=== PATIENT | female | born 1955 | race Caucasian/White ===

== ENCOUNTER → 2018-08-25 12:48 | Outpatient (CLI) | payer SELFPAY ==
--- NOTE | 2018-08-25 13:01 | BI_ITS ---
MAMMOGRAPHY - BILATERAL SCREENING REASON FOR EXAM: Female, 63 years old. Routine annual screening examination. PERTINENT HISTORY: Non-contributory. Remote right stereotactic breast biopsies and right excisional breast biopsy. TECHNIQUE: Digital bilateral breast margot (3D mammographic acquisition) in the CC and MLO projections. 2-D mediolateral oblique (MLO) and craniocaudad (CC) views of both breasts were obtained. CAD: Full Field Digital Mammography with Computer Added Detection was performed. COMPARISON: Comparison is made with prior outside examination dated June 24, 2017. FINDINGS: Breast Composition: The breasts are heterogeneously dense, which may obscure small masses. There are no dominant masses or suspicious calcifications. No other significant abnormalities are identified. There has been no significant change since the prior study. BI/SCREEN MAMM (CAD) W/MARGOT BILAT IMPRESSION: Stable bilateral screening mammogram. Yearly follow-up mammogram recommended. (A) ASSESSMENT CATEGORY: BIRADS Category 2: Benign. A letter regarding these results will be sent to the patient by the facility within 30 days. Approximately 10% of breast cancers are not detected by mammography. A normal mammogram should not delay biopsy of a clinically suspicious abnormality. [id number] Electronically Signed: Danilo Fair, at 15:14 EDT , Service support ,
== END ==
PROVIDERS: Family Provider Family Medicine; PCP Family Medicine; Referring Provider Family Medicine; Visit Provider Family Medicine
DX: Z12.31 Encounter for screening mammogram for malignant neoplasm of breast (principal)
CPT/HCPCS: 77063; 77067

== ENCOUNTER → 2019-09-25 10:43 | Outpatient (CLI) | payer MEDICARE, SELFPAY ==
--- NOTE | 2019-09-25 10:44 | BI_ITS ---
MAMMOGRAPHY - BILATERAL SCREENING REASON FOR EXAM: Female, 64 years old. Routine annual screening examination. PERTINENT HISTORY: Non-contributory. Remote right stereotactic breast biopsies and excisional breast biopsy. TECHNIQUE: Digital bilateral breast margot (3D mammographic acquisition) in the CC and MLO projections. 2-D mediolateral oblique (MLO) and craniocaudad (CC) views of both breasts were obtained. CAD: Full Field Digital Mammography with Computer Added Detection was performed. COMPARISON: Comparison is made with prior study dated August 25, 2018. FINDINGS: Breast Composition: The breasts are heterogeneously dense, which may obscure small masses. There are no dominant masses or suspicious calcifications. A tissue clip marker is seen in the upper lateral aspect of the right breast. No other significant abnormalities are identified. There has been no significant change since the prior study. BI/SCREEN MAMM (CAD) W/MARGOT BILAT IMPRESSION: Stable bilateral screening mammogram. Yearly follow-up mammogram recommended. (A) ASSESSMENT CATEGORY: BIRADS Category 2: Benign. A letter regarding these results will be sent to the patient by the facility within 30 days. Approximately 10% of breast cancers are not detected by mammography. A normal mammogram should not delay biopsy of a clinically suspicious abnormality. [id number] Electronically Signed: Danilo Fair, at 12:14 EDT , Service support ,
== END ==
PROVIDERS: PCP Family Medicine; Referring Provider Family Medicine; Visit Provider Family Medicine
DX: Z12.31 Encounter for screening mammogram for malignant neoplasm of breast (principal)
CPT/HCPCS: 77063; 77067

== ENCOUNTER → 2020-10-01 08:28 | Outpatient (CLI) | payer MEDICARE, SELFPAY ==
--- NOTE | 2020-10-01 08:31 | BI_ITS ---
MAMMOGRAPHY - BILATERAL SCREENING REASON FOR EXAM: Female, 65 years old. Routine annual screening examination. PERTINENT HISTORY: Non-contributory. Remote right stereotactic breast biopsy and right excisional breast biopsy. TECHNIQUE: Digital bilateral breast margot (3D mammographic acquisition) in the CC and MLO projections. 2-D mediolateral oblique (MLO) and craniocaudad (CC) views of both breasts were obtained. CAD: Full Field Digital Mammography with Computer Added Detection was performed. COMPARISON: Comparison is made with prior study of 09/25/2019 and 08/25/2018. FINDINGS: Breast Composition: The breasts are heterogeneously dense, which may obscure small masses. There are no dominant masses or suspicious calcifications. There are 2 tissue clip markers once again seen in the retroareolar region of the right breast No other significant abnormalities are identified. There has been no significant change since the prior study. BI/SCRN MAMM (CAD)W/MARGOT BILAT IMPRESSION: Stable bilateral screening mammogram. Yearly follow-up mammogram recommended. (A) ASSESSMENT CATEGORY: BIRADS Category 2: Benign. A letter regarding these results will be sent to the patient by the facility within 30 days. Approximately 10% of breast cancers are not detected by mammography. A normal mammogram should not delay biopsy of a clinically suspicious abnormality. [id number] Electronically Signed: Danilo Fair MD at 9:12 EDT , Service support ,
== END ==
PROVIDERS: PCP Family Medicine; Referring Provider Family Medicine; Visit Provider Family Medicine
DX: Z12.31 Encounter for screening mammogram for malignant neoplasm of breast (principal)
CPT/HCPCS: 77063; 77067

== ENCOUNTER → 2021-11-16 | Outpatient (CLI) | payer MEDICARE, SELFPAY ==
--- NOTE | 2021-11-16 10:30 | BI_ITS ---
MAMMOGRAPHY - BILATERAL SCREENING REASON FOR EXAM: Female, 66 years old. Routine annual screening examination. PERTINENT HISTORY: Non-contributory. History of prior right excisional and stereotactic breast biopsies. TECHNIQUE: Digital bilateral breast margot (3D mammographic acquisition) in the CC and MLO projections. 2-D mediolateral oblique (MLO) and craniocaudad (CC) views of both breasts were obtained. CAD: Full Field Digital Mammography with Computer Added Detection was performed. COMPARISON: Comparison is made with prior study dated 10/01/2020 and 09/25/2019. FINDINGS: Breast Composition: The breasts are heterogeneously dense, which may obscure small masses. There are no dominant masses or suspicious calcifications. Once again, 2 soft tissue clip markers are seen in the retroareolar region of the right breast. No other significant abnormalities are identified. There has been no significant change since the prior study. BI/SCRN MAMM (CAD)W/MARGOT BILAT IMPRESSION: Stable bilateral screening mammogram. Yearly follow-up mammogram recommended. (A) ASSESSMENT CATEGORY: BIRADS Category 0: Incomplete. Need additional imaging evaluation. A letter regarding these results will be sent to the patient by the facility within 30 days. Approximately 10% of breast cancers are not detected by mammography. A normal mammogram should not delay biopsy of a clinically suspicious abnormality. [id number] Electronically Signed: Danilo Fair MD at 11:15 EDT ,
== END | disposition home or self-care (01) ==
LOC: OPBI 10:29
PROVIDERS: PCP Family Medicine; Visit Provider Family Medicine
DX: Z12.31 Encounter for screening mammogram for malignant neoplasm of breast (principal); N64.89 Other specified disorders of breast
CPT/HCPCS: 77063; 77067

== ENCOUNTER → 2022-12-24 | Outpatient (CLI) | payer MEDICARE, SELFPAY ==
--- NOTE | 2022-12-24 10:47 | BI_ITS ---
MAMMOGRAPHY - BILATERAL SCREENING REASON FOR EXAM: Female, 67 years old. Routine annual screening examination. PERTINENT HISTORY: Non-contributory. Prior right stereotactic breast biopsies and excisional breast biopsy. TECHNIQUE: Digital bilateral breast margot (3D mammographic acquisition) in the CC and MLO projections. 2-D mediolateral oblique (MLO) and craniocaudad (CC) views of both breasts were obtained. CAD: Full Field Digital Mammography with Computer Added Detection was performed. COMPARISON: Comparison is made with prior study dated November 16, 2021 and October 01, 2020. FINDINGS: Breast Composition: The breasts are heterogeneously dense, which may obscure small masses. There are no dominant masses or suspicious calcifications. Once again, there are 2 tissue clip marker is seen in the retroareolar region of the right breast. No other significant abnormalities are identified. There has been no significant change since the prior study. BI/SCRN MAMM (CAD)W/MARGOT BILAT IMPRESSION: Stable bilateral screening mammogram. Yearly follow-up mammogram recommended. (A) ASSESSMENT CATEGORY: BIRADS Category 2: Benign. A letter regarding these results will be sent to the patient by the facility within 30 days. Approximately 10% of breast cancers are not detected by mammography. A normal mammogram should not delay biopsy of a clinically suspicious abnormality. [id number] Electronically Signed: Danilo Fair MD at 13:39 EDT ,
== END | disposition home or self-care (01) ==
LOC: OPBI 10:45
PROVIDERS: PCP Family Medicine; Referring Provider Family Medicine; Visit Provider Family Medicine
DX: Z12.31 Encounter for screening mammogram for malignant neoplasm of breast (principal)
CPT/HCPCS: 77063; 77067

== ENCOUNTER 2023-05-04 07:34 | Day surgery (SDC) | payer MEDICARE, SELFPAY ==
--- OUTSIDE RECORDS SUMMARY | 2023-05-04 07:37 | XMS RPT_ITS | CCD ---
Author Name Unknown Address [address] [place] [address] Organization [facility] Care Team Providers Care Service Desk Associate Name Role Phone Melani Gramajo Primary Care Provider MINOT, MELANI Primary Care Unavailable MINOT, MELANI Consulting Unavailable MINOT, MELANI Admitting Unavailable MINOT, MELANI Attending Unavailable PROVIDER, UNKNOWN Consulting Unavailable MINOT, MELANI Consulting Unavailable MINOT, MELANI Attending Unavailable MINOT, MELANI Admitting Unavailable MINOT, MELANI Primary Care Unavailable PROVIDER, UNKNOWN Consulting Unavailable MINOT, MELANI Attending Unavailable MINOT, MELANI Primary Care Unavailable MINOT, MELANI Consulting Unavailable MINOT, MELANI Admitting Unavailable PROVIDER, UNKNOWN Consulting Unavailable MINOT, MELANI Primary Care Unavailable MINOT, MELANI Consulting Unavailable MINOT, MELANI Admitting Unavailable MINOT, MELANI Attending Unavailable PROVIDER, UNKNOWN Consulting Unavailable MINOT, MELANI Primary Care Unavailable MINOT, MELANI Consulting Unavailable MINOT, MELANI Admitting Unavailable MINOT, MELANI Attending Unavailable PROVIDER, UNKNOWN Consulting Unavailable MINOT, MELANI Primary Care Unavailable MINOT, MELANI Consulting Unavailable MINOT, MELANI Admitting Unavailable MINOT, MELANI Attending Unavailable PROVIDER, UNKNOWN Consulting Unavailable MINOT, MELANI Referring Unavailable MINOT, MELANI Consulting Unavailable YOANDY FITZGERALD Primary Care Unavailable LEMCHRISSY, YOANDY Isidro Attending Unavailable LEMCHRISSY, YOANDY Isidro Admitting Unavailable PROVIDER, UNKNOWN Consulting Unavailable MINOT, MELANI Primary Care Unavailable MINOT, MELANI Consulting Unavailable MINOT, MELANI Attending Unavailable MINOT, MELANI Admitting Unavailable PROVIDER, UNKNOWN Consulting Unavailable MINOT, MELANI Primary Care Unavailable MINOT, MELANI Consulting Unavailable MINOT, MELANI Admitting Unavailable MINOT, MELANI Attending Unavailable PROVIDER, UNKNOWN Consulting Unavailable Medications Completed/Discontinued Medications Medication Drug Class(es) Dates Sig (Normalized) Sig (Original) Calcium Carbonate (1 source) CALCIUM CARBONAT E (CALCIUM 600 ORAL) Take by mouth. 0 Active Problems Active Problems Problem Classification Problem Date Documented Da te Episodic/Chronic Cardiac dysrhythmias (1 source) Tachycardia, unspecified; Translations: [Tachycardia, unspecified] Onset: 03-31-2023 Episodic Other lower respiratory disease (1 source) Shortness of breath; Translations: [Shortness of breath] Onset: 03-31-2023 Episodic Other screening for suspected conditions (not mental disorders or infectious disease) (2 sources) Other specified abnormal findings of blood chemistry; Translations: [Other specified abnormal findings of blood chemistry] Onset: 02-18-2023 Episodic Residual codes; unclassified (1 source) Kidney donor; Translations: [Kidney donors] Episodic Past or Other Problems Problem Classification Problem Date Documented Da te Episodic/Chronic E Codes: Natural/environment (1 source) Bitten or stung by nonvenomous insect and other nonvenomous arthropods, initial encounter; Translations: [Bitten or stung by nonvenomous insect and other nonvenomous arthropods, initial encounter] Onset: 07-13-2022 Episodic Heart valve disorders (1 source) Cardiac murmur, unspecified; Translations: [Cardiac murmur, unspecified] Onset: 07-23-2022 Episodic Nonspecific chest pain (3 sources) Chest pain, unspecified; Translations: [Chest pain, unspecified] Onset: 07-23-2022 Episodic Other aftercare (1 source) Other disc pad grinder (current) drug therapy; Translations: [Other disc pad grinder (current) drug therapy] Onset: 08-17-2022 Episodic Other infections; including parasitic (1 source) Lyme disease, unspecified; Translations: [Lyme disease, unspecified] Onset: 10-01-2022 Episodic Results Test Name Value Interpretation Reference Range Facil ity Encounters Encounter Date Encounter Type Care Provider Facility Start: 03-31-2023 End: 03-31-2023 ambulatory [facility] Start: 02-18-2023 End: 02-18-2023 ambulatory [facility] Start: 02-07-2023 End: 02-07-2023 ambulatory [facility] Start: 10-01-2022 End: 07-14-2023 ambulatory [facility] Start: 08-17-2022 End: 08-17-2022 ambulatory [facility] Start: 07-23-2022 End: 07-23-2022 ambulatory [facility] Start: 07-13-2022 End: 07-13-2022 ambulatory [facility] Start: 07-12-2022 End: 07-12-2022 Emergency department patient visit [facility] Start: 06-15-2021 Telephone encounter Jessica Flores RN [facility] Procedures Date Procedure Procedure Detail Performing Clinician Start: 06-24-2017 Mammography Jessica Peng cic, RN Start: 01-30-2013 Colonoscopy Jessica Peng cic, RN Plan of Treatment Date Care Activity Detail Author Start: 01-30-2023 Colonoscopy COLONOSCOPY [facility] Start: 01-30-2023 COLORECTAL CANCER SCREENING COLORECTAL CANCER SCREENING [facility] Start: 03-21-2021 ADVANCE DIRECTIVE DISCUSSION ADVANCE DIRECTIVE DISCUSSION [facility] Start: 11-19-2020 Influenza vaccination INFLUENZA (#1) [facility] Start: 2019 BONE DENSITY BONE DENSITY [facility] Start: 2019 PNEUMOVAX AGE 65 AND OVER WITH 5YR LOOKBACK (#1) PNEUMOVAX AGE 65 AND OVER WITH 5YR LOOKBACK (#1) [facility] Start: 06-24-2018 Mammography MAMMOGRAM [facility] Start: 01-14-2004 SHINGRIX VACCINE (1 of 2) SHINGRIX V ACCINE (1 of 2) [facility] Start: 1999 COLOGUARD (FIT-DNA) COLOGUARD (FIT-D NA) [facility] Start: [address] COLONOGRAPHY [facility] Start: 1999 DIABETES SCREEN DIABETES SCREEN [facility] Start: 1999 FECAL OCCULT BLOOD FECAL OCCULT BLOO D [facility] Start: 1999 LIPID SCREEN LIPID SCREEN [facility] Start: 1999 SIGMOIDOSCOPY SIGMOIDOSCOPY [facility] Start: 1973 Urine microalbumin profile DTAP,TDAP ,TD (1 - Tdap) [facility] Start: 01-14-1972 HEPATITIS C SCREENING HEPATITIS C WY RINA [facility] Start: 1966 Adult depression [facility] assessment DEPRESSION SCREENING [facility] Start: 1959 COVID-19 VACCINE (1) COVID-19 VACCIN E (1) [facility] Payers Date Payer Category Payer Private Health Insurance [employer] [id number] 2021-Present [phone] [address] [place] [address] Indemnity [id number] 1955 Unknown [id number] 51 1955 Unknown [id number] 51 1955 Unknown [id number] 51 1955 Unknown [id number] 51 1955 Unknown [id number] 51 1955 Unknown [id number] 51 1955 Unknown [id number] 51 1955 Unknown [id number] 51 1955 Unknown [id number] 51 Medicare [id number] Social History Date Type Detail Facility Start: 12-08-2012 Tobacco smoking status NHIS Never sm oked tobacco [facility] Start: 01-30-2013 Alcohol intake Not Asked [facility] Start: 1955 Sex Assigned At Not on file [facility] Evaluation note Note Date & Type Note Facility documented in this encounter [facility] Summary Purpose Family History No Family History Records FoundNo Family History Records FoundNo Family History Records Found Advance Directives No Advanced Directives Records FoundNo Advanced Directives Records FoundNo Advanced Directives Records Found Additional Source Comments INFORMATION SOURCE (unrecogn ized section and content) DATE CREATED AUTHOR AUTHOR'S ORGANIZ ATION 04/04/2023 [facility] DATE CREATED AUTHOR AUTHOR'S ORGANIZ ATION 04/04/2023 [facility] Source Comments (unrecognize d section and content) In the event this informatio n is protected by the Federal Confidentiality of Alcohol and Drug Abuse Patient Records regulations: The Federal rules restrict any use of the information to criminally investigate or prosecute any alcohol or drug abuse patient.[facility] Reason for Visit (unrecogniz ed section and content) Care Teams (unrecognized sec tion and content) FOR RECORDS PERTAINING TO PATIENTS WHO ARE OR HAVE BEEN ENROLLED IN A CHEMICAL DEPENDENCY/SUBSTANCEABUSE PROGRAM, SOME INFORMATION MAY BE OMITTED. This clinical summary was aggregated from multiple sources. Caution should be exercised in using it in the provision of clinical care. This summary normalizes information from multiple sources, and as a consequence, information in this document may materially change the coding, format and clinical context of patient data. In addition, data may be omitted in some cases. CLINICAL DECISIONS SHOULD BE BASED ON THE PRIMARY CLINICAL RECORDS. [facility] [email or web address] [facility]. provides no warranty or guarantee of the accuracy or completeness of information in this document.
[2023-05-04 07:57] VITALS: BP 101/70; PULSE 86; RESP 16; TEMP 36.5; O2SAT 100; BMI 24.5
[2023-05-04] MEDS: Lactated Ringers 1,000 ML 15 ML IV (08:00)
--- NOTE | 2023-05-04 08:10 | HP.PCM_ITS ---
[facility] - General General Date of Service: 05/04/23 [facility] Narrative JESUS CRAIG, is a 68 F who presents for screening colonoscopy. Patient had previous colonoscopy [address] Villasenor negative per patient. Patient denies any chronic abdominal pain/nausea/vomiting/reflux. Patient has bowel movements daily denies any blood. Patient denies any family history of colon cancer. [facility] Medical History Ascending aorta enlargement Cardiology follow-up encounter Depression Depression, controlled Heart murmur History of echocardiogram History of irregular heartbeat History of steroid therapy History of stress test Lyme disease Mitral valve insufficiency Osteopenia Post-menopausal Tachycardia Wears glasses Home Medications calcium carbonate 600 mg-vitamin D3 5 mcg (200 unit) tablet 1 tab PO DAILY 04/18/23 [History Last Taken Unknown] cranberry 400 mg capsule 400 mg PO DAILY 04/18/23 [History Last Taken Unknown] fluoxetine 20 mg capsule 20 mg PO DAILY 04/18/23 [History Last Taken Unknown] lysine 500 mg tablet 1,000 mg PO DAILY PRN cold sores 04/18/23 [History Last Taken Unknown] vitamins A,C,K-dofl-yvfaby 4,296 mcg-226 mg-90 mg capsule (PreserVision AREDS) 1 cap PO BID 04/18/23 [History Last Taken Unknown] ibuprofen 600 mg tablet 600 mg PO TID PRN pain 04/26/23 [History Last Taken Unknown] ginkgo biloba 40 mg tablet 40 mg PO DAILY 04/27/23 [History Last Taken Unknown] zinc 50 mg capsule 50 mg PO DAILY 04/27/23 [History Last Taken Unknown] Allergy/AdvReac Type Severity Reaction Status Date / Time No Known Allergies Allergy Verified 05/04/23 07:56 Family History (Updated 04/26/23 @ 12:54 by Lima Maravilla) Father Pancreatic cancer Mother Hypertension Surgical History History of carpal tunnel surgery of right wrist Hx of cataract removal with insertion of prosthetic lens Hx of colonoscopy Hx of dilation and curettage Social History (Updated 04/26/23 @ 12:55 by Lima Maravilla) household members: spouse current occupational status: retired Smoking Status: Never smoker alcohol intake: current substance use type: does not use caffeine: Yes Past Medical/Surgical History Planned Operation Planned Operative Procedure/s: COLONOSCOPY-OA Previous Hospitalizations/Surgeries HX Hospitalizations: No Any Problems With Anesthesia: No You/Your Family Experience Fever (Hyperthermia) With Anes: No Cholinesterase deficiency: No Cardiovascular Hx Hypertension: No Respiratory Hx Sleep Apnea: No Hx Respiratory Tract Infection/Cold (presently): No Do You Snore Loudly (louder than talking or can be heard): No Do You Often Feel Tired/ Fatigued/ Sleepy Dring Daytime?: No Has Anyone Observed You Stop Breathing During Sleep?: No Result (for STOP score): Negative Smoking Status: Never smoker Neurological Does patient have nerve stimulator: No Miscellaneous Recent Exposure to Contagious Disease: No Allergies No Known Allergies Allergy (Verified 05/04/23 07:56) Discharge Is Pt Admitted From a Longterm, or a Assisted: No After D/C, Where Do you Plan to Go: Return Home Vital Signs Vital Signs Vital Signs: 05/04/23 07:57 05/04/23 07:57 Temperature 97.7 F L Temperature Source Temporal Pulse Rate 86 Respiratory Rate 16 Respiratory Pattern Normal Blood Pressure 101/70 Blood Pressure Mean 80 Blood Pressure Source Monitor Blood Pressure Position Semi-Fowlers Blood Pressure Location Right Arm Pulse Ox 100 Oxygen Delivery Method Room Air Weight Weight: 147 lb 11.355 oz Body Mass Index (BMI) 24.5 Physical Exam Const alert, oriented x3 and no apparent distress HEENT normocephalic and head/scalp atraumatic Resp normal respiratory effort Cardio regular rate GI soft to palpation and non-tender; Negative for non-distended Palpation: Negative for guarding Extremity no clubbing, cyanosis or edema Skin no rashes or lesions noted Neuro CN's II-XII intact bilaterally Psych mental status grossly normal Assessment & Plan Assessment/Plan (1) Encounter for screening for malignant neoplasm of colon: Surgery Risks - Colonoscopy I discussed with the patient the risks of the procedure: Yes Risks Include but are not Limited To: Risks include but are not limited to: Bleeding, perforation requiring further surgery, inability to complete colonoscopy requiring barium enema.
--- NOTE | 2023-05-04 09:00 | COLBX_PTH ---
PATHOLOGY RESULTS PATIENT: JESUS CRAIG LOC: EN U#:[id number] AGE/SX: 68/F ROOM: RE05/04/[address]: Dr. Ramona Britt MD : 1955 BED: DIS: 05/04/2023 SPEC #: [id number] RECD: 05/04/23 11:52 STATUS: NATHALIE LALY #: [id number] BECK: 05/04/23 09:[address]: Ramona Britt DEPT: SURGICAL PATHOLOGY RECD BY: Dee Dee Moulton ENTERED: 05/04/23 11:52 SP TYPE: COLON BX OTHR DR: Cathy Hayes PA-C Tissues: Ascending colon Rectum, NOS Procedures: Surgery Specimen Level IV HEADER OPERATION: Colonoscopy - open access with polypectomy PRE-OP DIAGNOSIS: Screening TISSUE SUBMITTED: A - Polyp ascending colon, B - Polyp rectum MICROSCOPIC DIAGNOSIS A. Polyp ascending colon, polypectomy: Fragments of hyperplastic polyp. B. Polyp rectum, polypectomy: Hyperplastic polyp. SENIA:linnea 05/05/2023 MICROSCOPIC DESCRIPTION Slides are reviewed. GROSS DESCRIPTION A - Received in fixative is one container labeled with the patient's name and designated polyp ascending colon. The specimen consists of multiple irregular fragments of light golden soft tissue mixed with fecal material that in aggregate measure 2.5 x 1.3 x 0.2 cm. The specimen is totally submitted in one cassette. B - Received in fixative is one container labeled with the patient's name and designated polyp rectum. The specimen consists of one irregular fragment of light golden soft tissue that measures 0.4 x 0.3 x 0.1 cm. The specimen is totally submitted in one cassette. / SENIA:linnea 05/04/2023 TC:1 [facility]: [id number] x2
[2023-05-04 10:10] VITALS: BP 101/70; BP 114/76; PULSE 70; RESP 18; TEMP 36.7; O2SAT 99
[2023-05-04 10:15] VITALS: BP 101/70; BP 108/78; PULSE 70; RESP 18; O2SAT 100
--- NOTE | 2023-05-04 10:15 | OP.COLON_ITS ---
Patient Name: Kadie Rao Procedure Date: 05/04/2023 8:53 AM Date of : 1955 Age: 68 Procedure: Colonoscopy Indications: Screening for colorectal malignant neoplasm Providers: Ramona Britt MD Referring MD: Ramona Britt MD Medicines: Monitored Anesthesia Care Patient Profile: This is a 68 year old female. Last Colonoscopy: 10 years ago. Complications: No immediate complications. Procedure: Pre-Anesthesia Assessment: - Prior to the procedure, a History and Physical was performed, and patient medications and allergies were reviewed. The patient's tolerance of previous anesthesia was also reviewed. The risks and benefits of the procedure and the sedation options and risks were discussed with the patient. All questions were answered, and informed consent was obtained. Prior Anticoagulants: The patient has taken no anticoagulant or antiplatelet agents. ASA Grade Assessment: Per anesthesia. After reviewing the risks and benefits, the patient was deemed in satisfactory condition to undergo the procedure. After I obtained informed consent, the scope was passed under direct vision. Throughout the procedure, the patient's blood pressure, pulse, and oxygen saturations were monitored continuously. The Colonoscope was introduced through the anus and advanced to the cecum, identified by the ileocecal valve-unable to intubate the cecum. The colonoscopy was technically difficult and complex due to significant looping and a tortuous colon. The patient tolerated the procedure well. The quality of the bowel preparation was good. Scope In: 9:06:24 AM Scope Withdrawal Time 0 hours 11 minutes 23 seconds Scope Out: 10:04:17 AM Total Procedure Duration Time 0 hours 57 minutes 53 seconds Findings: The perianal and digital rectal examinations were normal. Three semi-pedunculated polyps were found in the rectum and ascending colon. The polyps were 3 to 6 mm in size. These polyps were removed with a hot snare. Resection and retrieval were complete. The exam was otherwise without abnormality. Impression: - Three 3 to 6 mm polyps in the rectum and in the ascending colon, removed with a hot snare. Resected and retrieved. - The examination was otherwise normal. Recommendation: - Discharge patient to home. - Resume previous diet. - Continue present medications. - Await pathology results. - Repeat colonoscopy in 3 years for surveillance based on pathology results. Procedure Code(s): --- Professional --- 12316, PT, Colonoscopy, flexible; with removal of tumor(s), polyp(s), or other lesion(s) by snare technique Diagnosis Code(s): --- Professional --- Z12.11, Encounter for screening for malignant neoplasm of colon D12.8, Benign neoplasm of rectum D12.2, Benign neoplasm of ascending colon CPT copyright 2021 [employer]. All rights reserved. The codes documented in this report are preliminary and upon forming acid dumper review may be revised to meet current compliance requirements. MD Ramona Fitzpartick MD 05/04/2023 10:15:38 AM This report has been signed electronically. Number of Addenda: 0 Note Initiated On: 05/04/2023 8:53 AM
--- NOTE | 2023-05-04 10:16 | OP.CCLET_ITS ---
05/04/2023 Cathy Hayes Re : Colonoscopy procedure for Kadie Hayes This procedure was performed on Thursday, May 04, 2023. My impressions and recommendations are as follows: Impressions : - Three 3 to 6 mm polyps in the rectum and in the ascending colon, removed with a hot snare. Resected and retrieved. - The examination was otherwise normal. Recommendations : - Discharge patient to home. - Resume previous diet. - Continue present medications. - Await pathology results. - Repeat colonoscopy in 3 years for surveillance based on pathology results. My findings are described in the full procedure note, which is enclosed. If I can be of further assistance, please feel free to contact me at Doctor phone number(s): , Work: . Sincerely, MD Ramona Fitzpatrick MD 05/04/2023 10:15:38 AM This report has been signed electronically.
[2023-05-04 10:20] VITALS: BP 101/70; BP 105/67; PULSE 70; RESP 18; O2SAT 100
[2023-05-04 10:28] VITALS: BP 101/70; BP 110/71; PULSE 71; RESP 14; TEMP 36.2; O2SAT 99
[2023-05-04 10:41] VITALS: BP 101/70
== END 2023-05-04 10:56 | disposition home or self-care (01) ==
LOC: EN 07:35 → AC 07:36
PROVIDERS: PCP Family Medicine; Referring Provider Surgery; Visit Provider Surgery
PROC: 0DJD8ZZ Inspection of Lower Intestinal Tract, Via Natural or Artificial Opening Endoscopic (ICD-10-PCS; CPT 45378; principal; 2023-05-04 08:55)
DX: Z12.11 Encounter for screening for malignant neoplasm of colon (principal); D12.2 Benign neoplasm of ascending colon; D12.8 Benign neoplasm of rectum
CPT/HCPCS: 45385; 88305; J7120; J2405

== ENCOUNTER → 2023-06-08 | Outpatient (CLI) | payer MEDICARE, SELFPAY ==
--- NOTE | 2023-06-08 12:41 | ECHOD_ITS ---
Reason For Study: PFO Procedure This was a 2D Doppler, Color Flow transthoracic echocardiogram. Exam performed in department. Left Ventricle Normal LV size. Left ventricular systolic function is normal. The left ventricular ejection fraction is 60 %. Stage 1 diastolic dysfunction. No regional wall motion abnormalities noted. Right Ventricle Normal RV size. Normal systolic function. Atria Normal left atrium. Normal right atrium. Bubble contrast study negative for right to left interatrial shunt. Mitral Valve Mild (1+) eccentric mitral valve insufficiency. Tricuspid Valve Normal tricuspid valve. Mild (1+) tricuspid valve insufficiency. Pulmonary artery systolic pressure is 28 mmHg. Aortic Valve Trisinus/trileaflet aortic valve. Mild (1+) aortic valve insufficiency. Great Vessels Mild to moderately dilated aortic root. The pulmonary artery is normal size. Normal inferior vena cava. Pericardium/Pleural No pericardial effusion. Medication Performed a rapid injection of agitated mix of 9 cc saline and 1cc air to assess for atrial septal defect. MMode/2D Measurements & Calculations LVIDd: 5.5 cm IVSd: 0.78 cm Ao root diam: 4.5 cm LVIDs: 3.1 cm LVPWd: 0.70 cm RVDd: 3.1 cm FS: 43.5 % LAV(MOD-bp): 20.7 ml LVAd ap4: 22.1 cm2 SV(MOD-sp4): 39.6 ml LAV(MOD-bp) Indexed: 11.9 ml/m2 LVLd ap4: 6.3 cm LAV(MOD-sp2): 25.5 ml EDV(MOD-sp4): 63.5 ml LAV(MOD-sp4): 16.8 ml EDV(sp4-el): 65.3 ml LVAs ap4: 12.6 cm2 LVLs ap4: 5.5 cm ESV(MOD-sp4): 23.9 ml ESV(sp4-el): 24.5 ml EF(MOD-sp4): 62.3 % EF(sp4-el): 62.4 % SV(sp4-el): 40.7 ml LA A4 area: 8.8 cm2 LA dimension(2D): 2.7 cm RA A4 area: 10.3 cm2 TAPSE: 2.0 cm Time Measurements MV dec time: 0.15 sec Doppler Measurements & Calculations MV E max richar: 70.7 cm/sec Lat Peak E' Richar: 6.2 cm/sec Med Peak E' Richar: 6.6 cm/sec MV A max richar: 96.1 cm/sec E/E' lat: 11.3 E/E' med: 10.7 MV E/A: 0.74 Ao V2 max: 134.4 cm/sec AI max richar: 431.4 cm/sec MV dec slope: 474.2 cm/sec2 Ao max P.2 mmHg AI max P.6 mmHg Ao V2 mean: 90.1 cm/sec Ao mean P.7 mmHg AI dec slope: 288.5 cm/sec2 Ao V2 VTI: 25.7 cm AI P1/2t: 438.0 msec AV (velocity ratio): 0.86 LV V1 max: 112.9 cm/sec PA V2 max: 64.3 cm/sec PI end-d richar: 108.7 cm/sec LV V1 max P.1 mmHg LV V1 mean P.7 mmHg LV V1 mean: 78.8 cm/sec LV V1 VTI: 22.2 cm TR max richar: 243.1 cm/sec TR max P.6 mmHg ECHO/Echo Complete Interpretation Summary Normal LV size. Left ventricular systolic function is normal. The left ventricular ejection fraction is 60 %. Stage 1 diastolic dysfunction. Bubble contrast study negative for right to left interatrial shunt. Ordering Physician: Blade Santiago Referring Physician: Cathy Hayes Performed By: Millie Dow, GERBER, RVT
== END | disposition home or self-care (01) ==
LOC: CVS 12:40
PROVIDERS: PCP Family Medicine; Referring Provider Internal Medicine Cardiovascular Disease; Visit Provider Internal Medicine Cardiovascular Disease
DX: Q21.12 Patent foramen ovale (principal); R00.0 Tachycardia, unspecified
CPT/HCPCS: 93306; A4216

== ENCOUNTER → 2024-02-01 | Outpatient (CLI) | payer MEDICARE, SELFPAY ==
--- NOTE | 2024-02-01 09:54 | BI_ITS ---
MAMMOGRAPHY - BILATERAL SCREENING REASON FOR EXAM: Female, 69 years old. Routine annual screening examination. PERTINENT HISTORY: Non-contributory. History of remote right stereotactic breast biopsies and excisional right breast biopsy. TECHNIQUE: Digital bilateral breast margot (3D mammographic acquisition) in the CC and MLO projections. 2-D mediolateral oblique (MLO) and craniocaudad (CC) views of both breasts were obtained. CAD: Full Field Digital Mammography with Computer Added Detection was performed. COMPARISON: Comparison is made with prior study December 24, 2022 and November 16, 2021. FINDINGS: Breast Composition: The breasts are extremely dense, which lowers the sensitivity of mammography. There are no dominant masses or suspicious calcifications. Once again, there are 2 tissue markers seen in the retroareolar region of the right breast. No other significant abnormalities are identified. There has been no significant change since the prior study. BI/SCRN MAMM (CAD)W/MARGOT BILAT IMPRESSION: Stable bilateral screening mammogram. Yearly follow-up mammogram recommended. (A) ASSESSMENT CATEGORY: BIRADS Category 2: Benign. A letter regarding these results will be sent to the patient by the facility within 30 days. Approximately 10% of breast cancers are not detected by mammography. A normal mammogram should not delay biopsy of a clinically suspicious abnormality. [id number] Electronically Signed: Danilo Fair MD at 10:58 EST ,
== END | disposition home or self-care (01) ==
PROVIDERS: PCP Family Medicine; Referring Provider Family Medicine; Visit Provider Family Medicine
DX: Z12.31 Encounter for screening mammogram for malignant neoplasm of breast (principal)
CPT/HCPCS: 77063; 77067

== ENCOUNTER → 2024-11-28 | Outpatient (CLI) | payer MEDICARE, SELFPAY ==
[2024-11-28 11:50] LABS: Pro- Brain NATRIURETIC PEPTIDE 222 pg/mL (<=900)
== END | disposition home or self-care (01) ==
LOC: LAB 10:27
PROVIDERS: PCP Family Medicine; Referring Provider Internal Medicine Cardiovascular Disease; Visit Provider Internal Medicine Cardiovascular Disease
DX: R06.09 Other forms of dyspnea (principal); R79.89 Other specified abnormal findings of blood chemistry
CPT/HCPCS: 36415; 83880

== ENCOUNTER → 2025-02-06 | Outpatient (CLI) | payer MEDICARE, SELFPAY ==
--- NOTE | 2025-02-06 12:13 | BI_ITS ---
EXAM: SCRN MAMM (CAD)W/MARGOT BILAT DATE: 02/06/2025 CLINICAL HISTORY: F, Age 70 y/o , SCREENING TECHNIQUE: Procedure Code: [id number] Modality: MG Procedure: SCRN MAMM (CAD)W/MARGOT BILAT COMPARISON: Prior exam(s) were compared FINDINGS: TISSUE DENSITY: The breasts are heterogeneously dense, which may obscure small masses. Bilateral Breast Mammographic Findings: No significant masses, calcifications or other abnormalities are identified. BI/SCRN MAMM (CAD)W/MARGOT BILAT IMPRESSION: No mammographic evidence of malignancy in either breast. OVERALL FINAL ASSESSMENT BI-RADS 1: NEGATIVE. RECOMMENDATION: Routine annual follow-up in 1 Year Additional Recommendation none A letter with findings and recommendations will be mailed to the patient. Reading Location: [id number]
== END | disposition home or self-care (01) ==
PROVIDERS: PCP Family Medicine; Referring Provider Family Medicine; Visit Provider Family Medicine
DX: Z12.31 Encounter for screening mammogram for malignant neoplasm of breast (principal)
CPT/HCPCS: 77063; 77067